=== PATIENT | female | born 1990 | race Two or more races ===

== ENCOUNTER 2019-04-01 07:56 | Outpatient (CLI) | payer OTHER | END 2019-04-01 08:02 | disposition home or self-care (01) | LOC: SONOGRAMA 07:56 | DX: D28.0 Benign neoplasm of vulva (principal) ==

== ENCOUNTER 2019-08-06 05:34 | Day surgery (SDC) | payer OTHER ==
[2019-08-06] MEDS ORDERED: FLAGYL500MG PO (11:56)
[2019-08-06] MEDS ORDERED: DERMOPLAST PAIN78 GM TOP (12:14)
== END 2019-08-06 16:00 | disposition home or self-care (01) ==
LOC: CIR.AMB 05:34 → ADM 09:30 → CIR.AMB 09:30
DX: N75.8 Other diseases of Bartholin's gland (principal)